=== PATIENT | male | born 1985 | race Hispanic/Latino ===

== ENCOUNTER 2019-09-04 22:20 | Emergency (ER) | payer OTHER, SELFPAY ==
[2019-09-04 23:08] LABS: Absolute Lymphocytes (CBC) 1.8 K/uL (0.7-4.9); Basophils % 0.4 % (0-1.3); Hematocrit 45.3 % (39.6-49.0); Lymphocytes % 19.4 % (15.3-44.8); MPV 9.9 fL (7.6-11.3); Protime INR 0.99; RBC Red Blood Cell Count 5.44 M/uL (4.33-5.43)
[2019-09-04 23:24] LABS: ALT/SGPT 43 U/L (12-78); AST/SGOT 25 U/L (15-37); Albumin 4.1 g/dL (3.4-5.0); Alkaline Phosphatase 91 U/L (45-117); BUN Blood Urea Nitrogen 13 mg/dL (7-18); Bicarbonate 24 mmol/L (21-32); Bilirubin Direct 0.1 mg/dL (0-0.2); Bilirubin Total 0.6 mg/dL (0.2-1.0); Glucose Level 92 mg/dL (74-106); Magnesium 2.1 mg/dL (1.8-2.4); NT PRO-BNP 71 pg/mL (<125); Potassium 3.4 mmol/L (3.5-5.1); Protein, Total 7.5 g/dL (6.4-8.2); Sodium Level 140 mmol/L (136-145); Troponin (Emerg Dept Use Only) < 0.02 ng/mL (0.0-0.045)
[2019-09-05 00:37] VITALS: O2SAT 100
[2019-09-05 00:39] VITALS: BP 138/98; TEMP 98
--- NOTE | 2019-09-05 07:08 | EKG ---
Test Date: 2019-09-04 Test Time: 22:36:07 Field Test Engineer: BENJAMIN MEASUREMENT RESULTS: Intervals: Rate: 87 MT: 160 QRSD: 90 QT: 386 QTc: 464 [place]: P: 33 MT: 160 QRS: 29 T: 25 INTERPRETIVE STATEMENTS: Normal sinus rhythm Normal ECG No previous ECG available for comparison Electronically Signed On 09-05-19 07:07:54 CDT by Armando Dangelo
--- NOTE | 2019-09-06 12:56 | RAD REPORT ---
EXAM DESCRIPTION: RAD - CHEST SINGLE VIEW CLINICAL HISTORY: Chest pain. COMPARISON: None. TECHNIQUE: Portable chest exam obtained 2234 hours on 09/04/2019. FINDINGS: The lungs are clear. The heart and vascular structures are within normal limits. No pneumothorax or pleural effusion. The trachea is midline. No acute bone finding. IMPRESSION: Portable chest.
--- NOTE | 2019-09-11 12:47 | EDPHYS ---
Physician Documentation [facility] Name: Jeremiah Mast Age: 33 yrs Sex: Male : 1985 Arrival Date: 09/04/2019 Time: 22:24 Bed 16 Private MD: ED Physician Emelia Mcgregor HPI: 09/03 23:31 This 33 yrs old Male presents to ER via Ambulatory with complaints of Chest kb Pain, High Blood Pressure. 23:31 The patient has elevated blood pressure and discovered this at a friend's home. Onset: kb The symptoms/episode began/occurred today. Associated signs and symptoms: Pertinent positives: chest pain, Pertinent negatives: dizziness, dyspnea, headache, lightheadedness, nausea, visual changes, vomiting, weakness. Severity of symptoms: At its worst the blood pressure was moderate, 150 mm Hg, in the emergency department the blood pressure is unchanged. The patient has experienced similar episodes in the past. The patient has not recently seen a physician. Pt reports he felt off so we went to the EMS station and had them check his BP. States they told him it was high and recommended he come the the ER for an EKG. States he has a history of htn and was prescribed medication for management (thinks lisinopril), but ran out of pills so he just quit taking them. . Historical: - Allergies: 22:33 No Known Allergies; sg - Home Meds: 22:33 Unknown BP medication [Active]; sg - PMHx: 22:33 Hypertension; sg - PSHx: 22:33 None; sg - Immunization history:: Adult Immunizations up to date. - Social history:: Smoking status: Patient reports the use of cigarette tobacco products, denies chronic smoking, but will smoke occasionally, Patient uses caffeine, reports having redbull, and coffee on shift tonight. ROS: 23:30 Constitutional: Negative for fever, chills, and weight loss, Cardiovascular: Negative kb for chest pain, palpitations, and edema. +tense feeling in chest Respiratory: Negative for shortness of breath, cough, wheezing, and pleuritic chest pain, Abdomen/GI: Negative for abdominal pain, nausea, vomiting, diarrhea, and constipation, Back: Negative for injury and pain, MS/Extremity: Negative for injury and deformity, Skin: Negative for injury, rash, and discoloration, Neuro: Negative for headache, weakness, numbness, tingling, and seizure. Exam: 23:31 Constitutional: This is a well developed, well nourished patient who is awake, alert, kb and in no acute distress. Head/Face: Normocephalic, atraumatic. Chest/axilla: Normal chest wall appearance and motion. Nontender with no deformity. No lesions are appreciated. Cardiovascular: Regular rate and rhythm with a normal S1 and S2. No gallops, murmurs, or rubs. Normal PMI, no JVD. No pulse deficits. Respiratory: Lungs have equal breath sounds bilaterally, clear to auscultation and percussion. No rales, rhonchi or wheezes noted. No increased work of breathing, no retractions or nasal flaring. Abdomen/GI: Soft, non-tender, with normal bowel sounds. No distension or tympany. No guarding or rebound. No evidence of tenderness throughout. Skin: Warm, dry with normal turgor. Normal color with no rashes, no lesions, and no evidence of cellulitis. MS/ Extremity: Pulses equal, no cyanosis. Neurovascular intact. Full, normal range of motion. Neuro: Awake and alert, GCS 15, oriented to person, place, time, and situation. Cranial nerves II-XII grossly intact. Motor strength 5/5 in all extremities. Sensory grossly intact. Cerebellar exam normal. Normal gait. Vital Signs: 22:30 BP 158 / 96; Pulse 89; Resp 18; Temp 97.6; Pulse Ox 100% on R/A; Weight 99.79 kg; sg Height 5 ft. 10 in. (177.80 cm); Pain /; 09/04 00:02 BP 138 / 98; Pulse 80; Resp 18; Temp 98; Pulse Ox 100% on R/A; mg2 09/03 22:30 Body Mass Index 31.57 (99.79 kg, 177.80 cm) sg MDM: 09/03 22:25 Patient medically screened. kb 23:29 Data reviewed: vital signs, nurses notes. Data interpreted: Pulse oximetry: on room air kb is 100 %. Interpretation: normal. Counseling: I had a detailed discussion with the patient and/or guardian regarding: the historical points, exam findings, and any diagnostic results supporting the discharge/admit diagnosis, lab results, radiology results, the need for outpatient follow up, a family practitioner, to return to the emergency department if symptoms worsen or persist or if there are any questions or concerns that arise at home. 09/03 21: Order name: Basic Metabolic Panel; Complete Time: 23:29 kb 09/03 22: Order name: CBC with Diff; Complete Time: 23:12 kb 09/03 22:28 Order name: LFT's; Complete Time: 23:29 kb 09/03 22: Order name: Magnesium; Complete Time: 23:29 kb 09/03 22: Order name: NT PRO-BNP; Complete Time: 23:29 kb 09/03 22: Order name: PT-INR; Complete Time: 23:12 kb 09/03 22: Order name: Troponin (emerg Dept Use Only); Complete Time: 23:29 kb 09/03 22: Order name: XRAY Chest (1 view) kb 09/03 22: Order name: EKG; Complete Time: :29 kb 09/03 22: Order name: Cardiac monitoring; Complete Time: 23:06 kb 09/03 22:28 Order name: EKG - Nurse/Tech; Complete Time: 23:07 kb 09/03 22:28 Order name: IV Saline Lock; Complete Time: 23:07 kb 09/03 22:28 Order name: Labs collected and sent; Complete Time: 23:07 kb 09/03 22:28 Order name: O2 Per Protocol; Complete Time: 23:07 kb 09/03 22:28 Order name: O2 Sat Monitoring; Complete Time: 23:07 kb Administered Medications: No medications were administered Disposition: 09/04 02:44 Co-signature as Attending Physician, Emelia Mcgregor MD. ma2 Disposition: 09/04/19 23:34 Discharged to Home. Impression: Other chest pain, Essential (primary) hypertension. - Condition is Stable. - Discharge Instructions: Hypertension, [id number], DASH Eating Plan, Managing Your Hypertension. - Medication Reconciliation Form, Thank You Letter, Antibiotic Education, Prescription Opioid Use form. - Follow up: Emergency Department; When: As needed; Reason: Worsening of condition. Follow up: Private Physician; When: 2 - 3 days; Reason: Recheck today's complaints, Continuance of care, Re-evaluation by your physician. Signatures: Dispatcher [employer] EDFL Sabrina Jc, DATA ENTRY SPECIALIST-C DATA ENTRY SPECIALIST-Bowen Delvalle, RN RN sg Emelia Mcgregor MD MD nc2 Wilner Gilliam, RN RN mg2 Corrections: (The following items were deleted from the chart) 00:11 09/03 23:34 09/04/2019 23:34 Discharged to Home. Impression: Other chest pain; mg2 Essential (primary) hypertension. Condition is Stable. Forms are Medication Reconciliation Form, Thank You Letter, Antibiotic Education, Prescription Opioid Use. Follow up: Emergency Department; When: As needed; Reason: Worsening of condition. Follow up: Private Physician; When: 2 - 3 days; Reason: Recheck today's complaints, Continuance of care, Re-evaluation by your physician. kb
--- NOTE | 2019-09-11 12:47 | ER ---
Nurse's Notes [facility] Name: Jeremiah Mast Age: 33 yrs Sex: Male : 1985 Arrival Date: 09/04/2019 Time: 22:24 Bed 16 Private MD: Diagnosis: Other chest pain;Essential (primary) hypertension Presentation: 09/03 22:30 Chief complaint: Patient states: On shift and had the EMS crew check blood pressure and sg VS due to feeling jittery with headache, reports BP CARD SETTER per EMS was systolic 150's/100's, with an elevated HR but cannot recall the reading of HR. pt states cramping in the right wrist during BP that was taken by EMS. Coronavirus screen: Proceed with normal triage. Ebola Screen: Patient negative for fever greater than or equal to 101.5 degrees Fahrenheit, and additional compatible Ebola Virus Disease symptoms Patient denies exposure to infectious person. Patient denies travel to an Ebola-affected area in the 21 days before illness onset. No symptoms or risks identified at this time. Initial Sepsis Screen: Does the patient meet any 2 criteria? No. Patient's initial sepsis screen is negative. Does the patient have a suspected source of infection? No. Patient's initial sepsis screen is negative. Risk Assessment: Do you want to hurt yourself or someone else? Patient reports no desire to harm self or others. Onset of symptoms was September 04, 2019. Care prior to arrival: None. Transition of care: patient was not received from another setting of care. 22:30 Method Of Arrival: Ambulatory sg 22:30 Acuity: BENNY 3 sg Historical: - Allergies: 22:33 No Known Allergies; sg - Home Meds: 22:33 Unknown BP medication [Active]; sg - PMHx: 22:33 Hypertension; sg - PSHx: 22:33 None; sg - Immunization history:: Adult Immunizations up to date. - Social history:: Smoking status: Patient reports the use of cigarette tobacco products, denies chronic smoking, but will smoke occasionally, Patient uses caffeine, reports having redbull, and coffee on shift tonight. Screenin:30 Abuse screen: Denies threats or abuse. Denies injuries from another. Nutritional mg2 screening: No deficits noted. Tuberculosis screening: No symptoms or risk factors identified. Fall Risk IV access (20 points). Assessment: 23:30 General: Appears in no apparent distress. comfortable, Behavior is calm, cooperative. mg2 Pain: Complains of pain in chest Pain does not radiate. Pain began gradually. Neuro: Level of Consciousness is awake, alert, obeys commands, Oriented to person, place, time, situation. Cardiovascular: Capillary refill < 3 seconds Patient's skin is warm and dry. Respiratory: Airway is patent Respiratory effort is even, unlabored, Respiratory pattern is regular, symmetrical. GI: No signs and/or symptoms were reported involving the gastrointestinal system. : No signs and/or symptoms were reported regarding the genitourinary system. EENT: No signs and/or symptoms were reported regarding the EENT system. Derm: Skin is intact, is healthy with good turgor, Skin is pink, warm \T\ dry. normal. Musculoskeletal: Circulation, motion, and sensation intact. Capillary refill < 3 seconds. Vital Signs: 22:30 BP 158 / 96; Pulse 89; Resp 18; Temp 97.6; Pulse Ox 100% on R/A; Weight 99.79 kg; sg Height 5 ft. 10 in. (177.80 cm); Pain 3; 09/04 00:02 BP 138 / 98; Pulse 80; Resp 18; Temp 98; Pulse Ox 100% on R/A; mg2 09/03 22:30 Body Mass Index 31.57 (99.79 kg, 177.80 cm) ED Course: 09/03 22:24 Patient arrived in ED. ds1 22:25 Sabrina Jc [facility]C [facility]. kb 22:25 Emelia Mgcregor MD is Attending Physician. kb 22:36 Triage completed. sg 22:36 Arm band placed on. EKG completed in triage. Results shown to MD. sg 22:45 XRAY Chest (1 view) In Process Unspecified. EDMS 23:06 Wilner Gilliam, RN is Primary Nurse. mg2 23:30 Patient has correct armband on for positive identification. chemical research technician on. Pulse mg2 ox on. NIBP on. Door closed. 23:30 No provider procedures requiring assistance completed. Inserted saline lock: 20 gauge mg2 in right antecubital area, using aseptic technique. Blood collected. by DILCIA Matos Tech. Patient maintains SpO2 saturation greater than 95% on room air. 09/04 00:10 IV discontinued, intact, bleeding controlled, No redness/swelling at site. Pressure mg2 dressing applied. Administered Medications: No medications were administered Outcome: 09/03 23:34 Discharge ordered by . actalina 09/04 00:10 Discharged to home ambulatory. mg2 Condition: good Discharge instructions given to patient, Instructed on discharge instructions, follow up and referral plans. Demonstrated understanding of instructions, follow-up care. 00:11 Patient left the ED. mg2 Signatures: Dispatcher [employer] EDRI Sabrina Jc, GUDELIA CERVANTES-Bowen Delvalle, RN RN Genoveva Fay ds1 Wilner Gilliam RN RN mg2
== END 2019-09-05 00:11 | disposition home or self-care (01) ==
LOC: ER 22:20
DX: I10 Essential (primary) hypertension (principal); Z72.0 Tobacco use
CPT/HCPCS: 36415; 71045; 80048; 80076; 83735; 83880; 84484; 85025; 85610; 93005; 99285